=== PATIENT | male | born 1985 | race African-American/Black ===

== ENCOUNTER 2018-04-26 14:26 | Emergency (ER) | payer SELFPAY ==
[~2018-04-26] VITALS: Ht 188 cm; Wt 79.0 kg
[2018-04-26 14:49] VITALS: BP 148/89
== END 2018-04-26 16:30 | disposition left against medical advice (07) ==
LOC: ER 14:26
DX: M79.645 Pain in left finger(s) (principal); Z53.21 Procedure and treatment not carried out due to patient leaving prior to being seen by health care provider